=== PATIENT | female | born 1975 | race Caucasian/White ===

== ENCOUNTER 2018-04-22 19:43 | Inpatient (IN) | payer OTHER, MEDICARE ==
[2018-04-22 20:24] LABS: Hematocrit 40 % (35-47); Hemoglobin 14.2 g/dl (12.0-16.0); Mean Corpuscular HGB Conc 35 g/dl (31-36); Mean Corpuscular Hemoglobin 32 pg (27-31); Mean Corpuscular Volume 92 fL (80-97); Mean Platelet Volume 7.9 um3 (7.4-10.4); Platelet Count 214 10^3/ul (150-450); Red Blood Count 4.41 10^6/ul (4.00-5.40); Red Cell Distribution Width 12 % (10.5-15); White Blood Count 5.1 10^3/ul (3.5-10.8)
[2018-04-22 20:39] LABS: EGFR Non-African American 81.1 (>60)
[2018-04-22 20:45] LABS: Urine Appearance Clear; Urine Blood Negative (Negative); Urine Color Yellow; Urine Ketones 2+ (Negative); Urine Protein Negative (Negative); Urine Red Blood Cell Absent (Absent); Urine Specific Gravity 1.018 (1.010-1.030); Urine Urobilinogen Negative (Negative); Urine White Blood Cell Trace(0-5/hpf) (Absent)
[2018-04-22 20:48] LABS: ABS Basophils 0 10^3/ul (0-0.2); ABS Neutrophils 1.3 10^3/ul (1.5-7.7); ABS Neutrophils 2.6 10^3/ul (1.5-7.7); Monocytes % 11 % (0-7)
[2018-04-22 20:52] LABS: Lithium < 0.10 mmol/L (0.6-1.2)
[2018-04-22] MEDS ORDERED: Al Hydrox/Mg Hydrox/Simet LIQ* 30 ML UDC PO PRN (23:47)
[2018-04-22] MEDS ORDERED: Acetaminophen TAB* 325 MG PO PRN (23:47)
[2018-04-22 23:58] VITALS: BP 105/68
[2018-04-23] MEDS: Lithium Carbonate TAB* 300 MG PO SCH ×3 (09:30→21:15)
[2018-04-23] MEDS: Vitamin THERAPEUTIC TAB PO SCH (09:30)
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
--- NOTE | 2018-04-23 19:11 | ED ---
Nelli Sood Elizabeth, scribed for Irving Aguiar MD on 04/22/18 at 2002 . Psychiatric Complaint - HPI Summary HPI Summary: This patient is a 43 year old F presenting to [facility] with a chief complaint of decompensation since a few days ago. Per triage note, the patient reports life has been a harder than normal. The patient rates the pain 0/10 in severity. Symptoms aggravated by nothing. Symptoms alleviated by nothing. Patient denies SI, HI. The patient reports that she has been taking her [place] and Invega Sustenna medications. The patient has hx of depression and bipolar disorder. - History Of Current Complaint Chief Complaint: EDMentalHealth Time Seen by Provider: 04/22/18 19:55 Hx Obtained From: Patient Hx Last Menstrual Period: 08/17/17 Onset/Duration: Gradual Onset, Lasting Days, Still Present Timing: Constant Severity Initially: Mild Severity Currently: Mild Character: Depressed Aggravating Factor(s): Nothing Alleviating Factor(s): Nothing Related History: Positive For: Prior Psychiatric Issues Has Suicidal: Denies: Thoughts Has Homicidal: Denies: Thoughts - Allergies/Home Medications Allergies/Adverse Reactions: Allergies Allergy/AdvReac Type Severity Reaction Status Date / Time No Known Allergies Allergy Verified 08/22/17 09:52 PMH/Surg Hx/FS Hx/Imm Hx Respiratory History: Denies: Hx Chronic Obstructive Pulmonary Disease (COPD) Opthamlomology History: Denies: Hx Legally Blind EENT History: Denies: Hx Deafness Psychiatric History: Reports: Hx Depression, Hx Bipolar Disorder Infectious Disease History: No Infectious Disease History: Denies: Traveled Outside the [place] in Last 30 Days - Family History Known Family History: Positive: None - Social History Alcohol Use: None Substance Use Type: Reports: None Smoking Status (MU): Never Smoked Tobacco Review of Systems Negative: Fever Negative: Epistaxis Negative: Cough Negative: Vomiting Positive: Depressed, Other - negative SI, negative HI All Other Systems Reviewed And Are Negative: Yes Physical Exam - Summary Physical Exam Summary: VITAL SIGNS: Reviewed. GENERAL: Patient is a well-developed and nourished FEMALE who is lying comfortable in the stretcher. Patient is not in any acute respiratory distress. HEAD AND FACE: No signs of trauma. No ecchymosis, hematomas or skull depressions. No sinus tenderness. EYES: PERRLA, EOMI x 2, No injected conjunctiva, no nystagmus. EARS: Hearing grossly intact. Ear canals and tympanic membranes are within normal limits. MOUTH: Oropharynx within normal limits. NECK: Supple, trachea is midline, no adenopathy, no JVD, no carotid bruit, no c- spine tenderness, neck with full ROM. CHEST: Symmetric, no tenderness at palpation LUNGS: Clear to auscultation bilaterally. No wheezing or crackles. CVS: Regular rate and rhythm, S1 and S2 present, no murmurs or gallops appreciated. ABDOMEN: Soft, non-tender. No signs of distention. No rebound no guarding, and no masses palpated. Bowel sounds are normal. EXTREMITIES: FROM in all major joints, no edema, no cyanosis or clubbing. NEURO: Alert and oriented x 3. No acute neurological deficits. Speech is normal and follows commands. SKIN: Dry and warm PSYCH: depressed affect Triage Information Reviewed: Yes Vital Signs On Initial Exam: Initial Vitals Temp Pulse Resp BP Pulse Ox 99.7 F 90 16 122/87 96 04/22/18 19:46 04/22/18 19:46 04/22/18 19:46 04/22/18 19:46 04/22/18 19:46 Vital Signs Reviewed: Yes Diagnostics - Vital Signs Vital Signs Temp Pulse Resp BP Pulse Ox 04/22/18 19:46 99.7 F 90 16 122/87 96 - Laboratory Result Diagrams: 04/22/18 20:14 04/22/18 20:14 Lab Statement: Any lab studies that have been ordered have been reviewed, and results considered in the medical decision making process. Course/Dx - Course Course Of Treatment: This patient is a 43 year old F with hx of depression and bipolar disorder reporting decompensation since a few days ago. Patient denies SI, HI. The patient reports that she has been taking her medications. Test results with no significant abnormalities. After [facility], we discussed patient care with Dr. Mcbride and they recommended the patient be admitted with dx of unspecified depression. Patient will be admitted to the [facility]. The patient is agreeable with this plan. - Differential Dx/Clinical Impression Provider Diagnosis: Major depressive disorder, recurrent, unspecified - Physician Notifications Discussed Care Of Patient With: Nicho Mcbride Time Discussed With Above Provider: 22:40 Instructed by Provider To: Admit As Inpatient Discharge - Sign-Out/Discharge Documenting (check all that apply): Discharge/Admit/Transfer - Discharge Plan Condition: Stable Disposition: ADMITTED TO [facility] Discharge Disposition Comment: admit to [facility] The documentation as recorded by the Nelli dorantes Elizabeth accurately reflects the service I personally performed and the decisions made by me, Irving Aguiar MD.
[2018-04-24] MEDS ORDERED: Paliperidone SUSTENNA* 234 MG/1.5 ML IM SCH (09:00)
[2018-04-24] MEDS ORDERED: [UNRECOGNIZED DRUG - OTHER] IM ONE (12:00)
[2018-04-24] MEDS ORDERED: PALIPERIDONE IM ONE (12:00)
[2018-04-24] MEDS ORDERED: PALIPERIDONE PALMITATE 39 MG/0.25 ML IM ONE (12:00)
[2018-04-24] MEDS: Lithium Carbonate TAB* 300 MG PO SCH ×2 (12:43→21:06)
[2018-04-24] MEDS: Vitamin THERAPEUTIC TAB PO SCH (12:43)
[2018-04-24] MEDS ORDERED: Lithium Carbonate CAP 150 MG ** CAPSULE PO ONE (13:27)
--- NOTE | 2018-04-24 15:51 | PN ---
Subjective - Subjective Date of Service: 04/24/18 Service Type: 12364 Hosp care 25 min moderate complexity Subjective: Imelda is pleasant in conversation but continues with long latencies before answering some questions. She continues with some limited insight regarding her lithium dosage, wanting to lower it by 10% every week. She recalls a tiime that she tried to lower the dose at the same time as limiting her calories to <800 per day. She recognizes that the calorie reduction was severe, but does not see that the coincident lithium reduction was also problematic. Objective - Appearance Appearance: Thin Framed Dysmorphic Features: No Hygiene: Normal Grooming: Fairly Well Kept - Behavior Psychomotor Activities: Normal Exhibits Abnormal Movement: No - Attitude and Relatedness Attitude and Relatedness: Guarded Eye Contact: Good - Speech Quality: Unpressured Latencies: Long Quantity: Appropriate - Mood Patient's Decription of Mood: "Okay" - Affect Observed Affect: Unvariable Affect Consistent with: Dysphoria - Thought Process Patient's Thought Process: Coherent Thought Content: No Passive Wish, No Suicidal Planning, No Homicidal Ideation, No Paranoid Ideation - Sensorium Experiencing Hallucinations: No, Sensorium is Clear Type of Hallucinations: Visual: No, Auditory: No, Command: No - Level of Consciousness Level of Consciousness: Alert Orientation: Yes Intact, Yes Orientated to Time, Yes Orientated to Place, Yes Orientated to Person - Impulse Control Impulse Control: Intact - Insight and Judgement Insight and Judgement: Impaired - Medication Management Medication Management Adherence: Partial - Additional Observations Comments: Restarting lithium is the main goal at this time and Imelda agrees to 750 mg. She is sleeping much of the day. She sits very still. Assessment - Assessment Merits Inpatient Hospitalization: For Immediate Safety Inpatient DSM-V Dx: F31.5 Clinical Impression: Imelda is exhibiting significant depressive symptoms as well as impaired insight. Plan - Plan Treatment Plan: Name: IMELDA PICKERING Birthdate: 1975 [id number] Continued Medication Management: Continue Outpt Medication Medications: Current Medications Acetaminophen (Tylenol Tab*) 650 mg PO Q4H PRN PRN Reason: PAIN or TEMP > 101 F Al Hydrox/Mg Hydrox/Simethicone (Maalox Plus*) 30 ml PO Q4H PRN PRN Reason: INDIGESTION Cholecalciferol (Vitamin D Tab*) 1,000 units PO DAILY GLORIA [place] Carbonate ([place] Carbonate Tab*) 300 mg PO BID GLORIA Multivitamins (Theragran Tab*) 1 tab PO DAILY GLORIA Last Admin: 04/24/18 12:43 Dose: 1 tab - Discharge Plan Discharge Plan: Outpatient Follow Up Outpatient Program: [facility] Additional Comments: Imelda's lithium will be restarted to increase blood levels to those that are therapeutic. She states she has missed several doses recently. We initiate 750 mg today. 39 mg of Invega Sustenna was administered today and is considered part of the ongoing discharge plan.
[2018-04-25] MEDS: Vitamin THERAPEUTIC TAB PO SCH (08:55)
[2018-04-25] MEDS: Lithium Carbonate TAB* 300 MG PO SCH ×2 (08:55→20:37)
[2018-04-25] MEDS: Cholecalciferol TAB* 1000 UNITS PO SCH (08:55)
--- NOTE | 2018-04-25 14:06 | PN ---
Subjective - Subjective Date of Service: 04/25/18 Service Type: 30377 Hosp care 15 min low complexity Subjective: I spoke with Yemi about lithium. She is happy with the 750 mg that is prescribed and agrees to a blood draw on morning to check a level. In our initial conversation, she said that she would like to reduce from 900 mg of lithium and 750 is the compromise we came up with. She is also pacing around the unit. She is not saying that she's bored. It is good to see her out of bed. She would like to have staff pass, which we will chay. Objective - Appearance Appearance: Healthy Appearing Dysmorphic Features: No Hygiene: Normal Grooming: Fairly Well Kept - Behavior Psychomotor Activities: Normal Exhibits Abnormal Movement: No - Attitude and Relatedness Attitude and Relatedness: Psychotically Related Eye Contact: Good - Speech Quality: Unpressured Latencies: Short Quantity: Terse - Mood Patient's Decription of Mood: "Okay" - Affect Observed Affect: Constricted Affect Consistent with: Euthymia - Thought Process Patient's Thought Process: Coherent Thought Content: No Passive Wish, No Suicidal Planning, No Homicidal Ideation, No Paranoid Ideation - Sensorium Experiencing Hallucinations: No, Sensorium is Clear Type of Hallucinations: Visual: No, Auditory: No, Command: No - Level of Consciousness Level of Consciousness: Alert Orientation: Yes Intact, Yes Orientated to Time, Yes Orientated to Place, Yes Orientated to Person - Impulse Control Impulse Control: Intact - Insight and Judgement Insight and Judgement: Impaired - Group Participation Particating in Group Activities: No - Medication Management Medication Management Adherence: Yes - Additional Observations Comments: Restarting lithium is the main goal at this time and Yemi agrees to 750 mg. She is now walking around the unit wearing bare feet. Latencies are present, but she is pleasant and answers appropriately. Assessment - Assessment Merits Inpatient Hospitalization: For Immediate Safety, For Stabilization Inpatient DSM-V Dx: F31.5 Clinical Impression: Yemi is exhibiting depressive symptoms as well as impaired insight which would make it difficult for her to manage outside the hospital setting. Plan - Plan Treatment Plan: Name: YEMI PICKERING Birthdate: 1975 [id number] Continued Medication Management: Continue Outpt Medication Medications: Current Medications Acetaminophen (Tylenol Tab*) 650 mg PO Q4H PRN PRN Reason: PAIN or TEMP > 101 F Al Hydrox/Mg Hydrox/Simethicone (Maalox Plus*) 30 ml PO Q4H PRN PRN Reason: INDIGESTION Cholecalciferol (Vitamin D Tab*) 1,000 units PO DAILY [facility] Last Admin: 04/25/18 08:55 Dose: 1,000 units [place] Carbonate ([place] Carbonate Tab*) 300 mg PO BID GLORIA Last Admin: 04/25/18 08:55 Dose: 300 mg [place] Carbonate ([place] Carbonate Cap) 150 mg PO BEDTIME GL[facility]IA Multivitamins (Theragran Tab*) 1 tab PO DAILY GLORIA Last Admin: 04/25/18 08:55 Dose: 1 tab - Discharge Plan Discharge Plan: Outpatient Follow Up Outpatient Program[facility] Additional Comments: Yemi's lithium will be restarted to increase blood levels to those that are therapeutic. She states she has missed several doses recently. We initiate 750 mg today. 39 mg of Invega Sustenna was administered today and is considered part of the ongoing discharge plan. She had privileges increased today and a nutrition consult entered. We are looking toward Tuesday for discharge.
[2018-04-25] MEDS: Lithium Carbonate CAP 150 MG ** CAPSULE PO SCH (20:38)
[2018-04-26] MEDS: Lithium Carbonate TAB* 300 MG PO SCH ×2 (09:51→20:39)
[2018-04-26] MEDS: Cholecalciferol TAB* 1000 UNITS PO SCH (09:51)
[2018-04-26] MEDS: Vitamin THERAPEUTIC TAB PO SCH (09:51)
[2018-04-26] MEDS: Lithium Carbonate CAP 150 MG ** CAPSULE PO SCH (20:38)
[2018-04-27] MEDS: Cholecalciferol TAB* 1000 UNITS PO SCH (08:36)
[2018-04-27] MEDS: Vitamin THERAPEUTIC TAB PO SCH (08:37)
--- NOTE | 2018-04-27 08:38 | PN ---
Subjective - Subjective Date of Service: 04/26/18 Service Type: [id number] Hosp care 15 min low complexity Subjective: Imelda's speech latencies have nearly resolved. She is bright and reports feeling well, if a little bored. She would like to be discharged Tuesday before her son's recital. She has not yet stated when the recital is. Objective - Appearance Appearance: Healthy Appearing Dysmorphic Features: No Hygiene: Normal Grooming: Well Kept - Behavior Psychomotor Activities: Normal Exhibits Abnormal Movement: No - Attitude and Relatedness Attitude and Relatedness: Well Related Eye Contact: Good - Speech Quality: Unpressured Latencies: Short Quantity: Terse - Mood Patient's Decription of Mood: "Good" - Affect Observed Affect: Good Affect Consistent with: Euthymia - Thought Process Patient's Thought Process: Coherent, Goal Directed Thought Content: No Passive Wish, No Suicidal Planning, No Homicidal Ideation - Sensorium Experiencing Hallucinations: No, Sensorium is Clear Type of Hallucinations: Visual: No, Auditory: No, Command: No - Level of Consciousness Level of Consciousness: Alert Orientation: Yes Intact, Yes Orientated to Time, Yes Orientated to Place, Yes Orientated to Person - Impulse Control Impulse Control: Intact - Insight and Judgement Insight and Judgement: Impaired - Group Participation Particating in Group Activities: Yes - Medication Management Medication Management Adherence: Yes - Additional Observations Comments: Restarting lithium is the main goal at this time and Imelda agrees to 750 mg. She is now walking around the unit wearing bare feet. Latencies are much reduced and she is pleasant and answers appropriately. She is well groomed and is walking frequently around the unit. Assessment - Assessment Merits Inpatient Hospitalization: For Immediate Safety, For Stabilization, For Discharge Planning Inpatient DSM-V Dx: F31.5 Clinical Impression: Imelda has improved significantly with time and appropriate medications. She is reasonably happy on the unit, but requests to go home soon. She may have some psychotic thought processes remaining, but she is not sharing these with me. Her depression, which brought her here, seems to have resolved. Plan - Plan Treatment Plan: Name: IMELDA PICKERING Birthdate: 1975 [id number] Medications: Current Medications Acetaminophen (Tylenol Tab*) 650 mg PO Q4H PRN PRN Reason: PAIN or TEMP > 101 F Al Hydrox/Mg Hydrox/Simethicone (Maalox Plus*) 30 ml PO Q4H PRN PRN Reason: INDIGESTION Cholecalciferol (Vitamin D Tab*) 1,000 units PO DAILY [facility] Last Admin: 04/26/18 09:51 Dose: 1,000 units [place] Carbonate ([place] Carbonate Tab*) 300 mg PO BID [facility] Last Admin: 04/26/18 20:39 Dose: 300 mg [place] Carbonate ([place] Carbonate Cap) 150 mg PO BEDTIME [facility] Last Admin: 04/26/18 20:38 Dose: 150 mg Multivitamins (Theragran Tab*) 1 tab PO DAILY [facility] Last Admin: 04/26/18 09:51 Dose: 1 tab - Discharge Plan Additional Comments: Imelda's lithium will be restarted to increase blood levels to those that are therapeutic. She stated she had missed several doses recently. We initiated 750 mg of lithium. 39 mg of Invega Sustenna was administered this week and is considered part of the ongoing discharge plan. She had privileges increased and a nutrition consult entered. She will have a lithium draw on morning and dose will be titrated.
[2018-04-27] MEDS: Lithium Carbonate TAB* 300 MG PO SCH (08:42)
--- NOTE | 2018-04-28 14:55 | DS ---
DISCHARGE SUMMARY: DATE OF ADMISSION: 04/22/18 DATE OF DISCHARGE: 04/27/18 PROVIDER: Eugenia Parker NP in Psychiatry. SUPERVISING PHYSICIAN: Dr. Nicho Mcbride.* (DICTATED BY EUGENIA PARKER NP ) DIAGNOSIS: AXIS I: Bipolar disorder, depressed episode with psychotic features. CONDITION AT THE TIME OF DISCHARGE: Improved. Psychiatrically cleared, stable. She did not participate in groups, she was not social with peers. She is agreeable to discharge and is eager to leave so she can see a recital done by her son on Tuesday. She has done well psychiatrically, improving significantly. She tolerated the adjustment of dosing on her [place] and she will attend [facility]. MENTAL STATUS EXAM: At the time of discharge, Imelda is calm, cooperative, and makes good eye contact. She is alert and oriented x3. Her grooming is good. Her speech pace is normal. Her thought processes are logical. She is not psychotic anymore. She is not delusional. She denies AH, VH, SI, and HI. Her insight and judgments are fair to good. Her impulse control is good. She is willing to follow up. DISCHARGE INSTRUCTIONS: Medications: Relevant medications for Psychiatry are: 1. [place] carbonate 300 mg b.i.d. 2. Invega Sustenna 39 mg every 28 days. B. Her diet is regular. C. Activities: As tolerated. She is a nonsmoker. There are no studies pending at the time of discharge. D. Followup care: She has appointments at [facility]. E. Substance abuse followup is not indicated. HOSPITAL COURSE: A. Chief Complaint: "I just thought I needed a break." The patient is a 43-year-old , white female with a history of bipolar disorder and multiple historical acute psychiatric hospitalizations, who arrives on an voluntary basis seeking admission due to significant depressive symptoms and inability to meet her own needs in the community. The patient presented with limited motor movement, depressed thoughts, thought blocking, inconsistency in sleep, and very little energy. She reports that she has been "feeling low" and she states that normally she does not get this low unless she is going to commit suicide. 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 When I met with her, she is difficult to interview because she has extreme speech latency. She claims that she has been feeling lonely. I note that her lithium level was extremely low at 0.1, which she responds, "I might have missed a couple of days." I I also note that she is on an extremely low dose of monthly Invega/ Sustenna only 39 mg monthly, which is due on 04/24/18. When I asked about this, she states that she has side effects on all the higher doses including 234 and 156. She notes going down to her current 39 mg dose approximately 8 months ago under the care of Dr. Mireille Silver at [facility]. Symptomatically, she is endorsing amotivation, anxiety, anhedonia, appetite disturbance, and inconsistent sleep. She denies guilt, energy problems, concentration problems, psychomotor retardation, or suicidal or homicidal thinking. B. Psychiatric treatment was rendered. The patient was admitted to the adult behavioral unit and placed on 15-minute checks. She spent much of her time for the first 2 days in bed sleeping and then was seen up and around, sometimes pacing, sometimes back in bed for a few days until finally her last 2 days, she is pacing around the unit. The speech latency that was observed at the beginning of her stay reduced, but still existed. Latencies are very mild and were not out of the realm of typical speech latency. She had her [place] dose increased to 750 mg per day. Her blood levels came back at 1.22, which is too high and then we reduced it to 600 mg total. Her blood draw is scheduled when she is in outpatient treatment. She did tolerate the med change, but we reduced it to 600. That med was restarted as she has stopped taking [place] according to her for a few days. Her hemoglobin A1c was 4.9. Her lipids were as follows: Triglycerides 140, cholesterol 193, LDL cholesterol 131, HDL cholesterol 34.0. Her vitamin D total was low at 17.4 and her TSH is normal at 2.08. As stated before, she is eager to see her son perform in a recital on Tuesday. Nutrition consult was entered as she likes certain specific foods and tends to restrict her diet at times. She is significantly improved however and we will be discharging her on 04/27/18. EUGENIA PARKER, SOCIAL WORKER AIDE [id number]/[facility] #: [id number] MTDMichelle
== END 2018-04-27 14:08 | disposition home or self-care (01) | DRG 885 ==
LOC: ED 19:43 → BSU 22:40
PROVIDERS: ADMIT Psychiatry & Neurology Psychiatry; ATTEND Psychiatry & Neurology Psychiatry
DX: F31.5 Bipolar disorder, current episode depressed, severe, with psychotic features (principal); G47.8 Other sleep disorders; Z91.5 Personal history of self-harm; Z85.41 Personal history of malignant neoplasm of cervix uteri; Z81.8 Family history of other mental and behavioral disorders
CPT/HCPCS: 36415; 80053; 80061; 80178; 80307; 80320; 80329; 81003; 81015; 82306; 83036; 84443; 84702; 85025; 87086; 99222; 99231; 99232; 99238; 99283; A9270-GY; G0480; J2426

== ENCOUNTER 2018-07-09 22:20 | Inpatient (IN) | payer OTHER, MEDICARE ==
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
[2018-07-09 22:45] LABS: ABS Basophils 0 10^3/ul (0-0.2); ABS Eosinophils 0 10^3/ul (0-0.6); ABS Lymphocytes 1.3 10^3/ul (1.0-4.8); ABS Monocytes 0.6 10^3/ul (0-0.8); ABS Neutrophils 4.3 10^3/ul (1.5-7.7); ABS Nucleated RBC 0 10^3/ul; Eosinophil % 0.1 % (0-6); Hematocrit 42 % (35-47); Hemoglobin 14.1 g/dl (12.0-16.0); Lymphocyte % 20.5 % (25-47); Mean Corpuscular HGB Conc 34 g/dl (31-36); Mean Corpuscular Hemoglobin 32 pg (27-31); Mean Corpuscular Volume 94 fL (80-97); Mean Platelet Volume 7.5 um3 (7.4-10.4); Nucleated Red Blood Cells % 0; Platelet Count 248 10^3/ul (150-450); Red Blood Count 4.43 10^6/ul (4.00-5.40); Red Cell Distribution Width 14 % (10.5-15); White Blood Count 6.2 10^3/ul (3.5-10.8)
[2018-07-09 23:02] LABS: EGFR Non-African American 79.9 (>60)
[2018-07-09 23:13] LABS: Lithium 0.12 mmol/L (0.6-1.2)
[2018-07-10] MEDS ORDERED: Haloperidol INJ IV/IM* 5 MG/ML AMP IM ONE (04:23)
[2018-07-10] MEDS ORDERED: LORazepam INJ* 2 MG/ML 1 ML VIAL IM ONE (05:19)
[2018-07-10] MEDS ORDERED: LORazepam INJ* 2 MG/ML 1 ML VIAL ONE (05:21)
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
[2018-07-11] MEDS ORDERED: LORazepam TAB(*) 1 MG ONE (04:22)
[2018-07-11] MEDS ORDERED: Haloperidol TAB* 5 MG ONE (04:23)
[2018-07-11] MEDS ORDERED: LORazepam TAB(*) 1 MG PO ONE (04:30)
[2018-07-11] MEDS ORDERED: LORazepam INJ* 2 MG/ML 1 ML VIAL IM ONE (04:30)
[2018-07-11] MEDS ORDERED: Haloperidol INJ IV/IM* 5 MG/ML AMP IM ONE (04:30)
[2018-07-11] MEDS ORDERED: Haloperidol TAB* 5 MG PO ONE (04:30)
[2018-07-11] MEDS ORDERED: Lithium Carbonate TAB* 300 MG PO ONE (10:17)
[2018-07-11] MEDS ORDERED: LORazepam TAB(*) 1 MG PO PRN (10:20)
--- NOTE | 2018-07-11 13:32 | PN ---
Subjective - Subjective Date of Service: 07/11/18 Service Type: 56833 Hosp care 15 min low complexity Subjective: Imelda is found in bed moving slowly but sitting up and alert. She is pleasant to talk to and has little to say, but is willing to talk about medications. She is willing to take a "small dose" of Abilify and 900 mg of lithium. 900 mg has historically been a therapeutic dose. At her last hospital stay, 1200 yielded a level of 1.2, too high. Objective - Appearance Appearance: Healthy Appearing Dysmorphic Features: No Hygiene: Normal Grooming: Disheveled - Behavior Psychomotor Activities: Abnormal-Decreased Exhibits Abnormal Movement: No - Attitude and Relatedness Attitude and Relatedness: Superficially Cooperative Eye Contact: Fair - Speech Quality: Unpressured Latencies: Short Quantity: Terse - Mood Patient's Decription of Mood: "Fine" - Affect Observed Affect: Constricted Affect Consistent with: Dysphoria - Thought Process Patient's Thought Process: Coherent Thought Content: No Passive Wish, No Suicidal Planning, No Homicidal Ideation, No Paranoid Ideation - Sensorium Experiencing Hallucinations: No, Sensorium is Clear Type of Hallucinations: Visual: No, Auditory: No, Command: No - Level of Consciousness Level of Consciousness: Lethargic Orientation: Yes Intact, Yes Orientated to Time, Yes Orientated to Place, Yes Orientated to Person - Impulse Control Impulse Control: Impaired - Insight and Judgement Insight and Judgement: Impaired - Group Participation Particating in Group Activities: No - Medication Management Medication Management Adherence: Yes - Additional Observations Comments: Imelda is doing as well as possible for right now. She is moving slowly and talking little, but is pleasant and largely agreeable. She is agreeable to taking lithium and was happy with 5 mg of Abilify for now. Assessment - Assessment Merits Inpatient Hospitalization: For Immediate Safety Clinical Impression: Imelda needs time to rest and recover. Her prior recovery was more rapid than we thought possible, and indeed it was not. Thus, this stay will be longer with a more aggressive application of antipsychotics as well as a longer stay to establish more stability. We will be using Abilify 400 mg as data from her stay in [place] indicates that 15 mg per day is an ideal dose of Imelda. It may be that in the future, she can use a lower dose; still, the 400 mg dose is the closest equivalent to 15 mg a day that we have. Plan - Plan Treatment Plan: Name: IMELDA PICKERING Birthdate: 1975 [id number] Medications: Current Medications Aripiprazole (Abilify Tab*) 5 mg PO BEDTIME GLORIA [place] Carbonate ([place] Carbonate Tab*) 600 mg PO BEDTIME GLORIA [place] Carbonate ([place] Carbonate Tab*) 300 mg PO DAILY GLORIA Lorazepam (Ativan Tab(*)) 2 mg PO Q4H PRN PRN Reason: Anxiety/agitation Risperidone (Risperdal-M Tab *) 1 mg PO Q6H PRN; Protocol PRN Reason: AGITATION
[2018-07-11] MEDS: Lithium Carbonate TAB* 300 MG PO SCH (21:57)
[2018-07-11] MEDS: ARIPiprazole TAB* 5 MG PO SCH (21:57)
[2018-07-12] MEDS: LORazepam TAB(*) 1 MG PO PRN (01:05)
[2018-07-12] MEDS: risperiDONE-M * 1 MG TAB.ORADIS PO PRN (01:05)
[2018-07-12] MEDS: Lithium Carbonate TAB* 300 MG PO SCH ×3 (10:34→20:59)
--- NOTE | 2018-07-12 14:44 | PN ---
Subjective - Subjective Date of Service: 07/12/18 Service Type: 71098 Hosp care 15 min low complexity Subjective: Imelda has agreed to take 300 mg of Abilify Maintena. She was quite delighted, in fact. She was not agreeable to taking more than 5 mg of Abilify oral tablet, however. Nevertheless, with the Abilify concentration increasing, she will be more likely to be less psychotic. She is currently pacing through the hallways and trying to understand why the unit looks different than the last time she was here. I did find her on one knee in the hallway; she said she tried to do a cartwheel and it "wasn't my finest moment." She was strongly encouraged not to do that again. Objective - Appearance Appearance: Healthy Appearing, Thin Framed Dysmorphic Features: No Hygiene: Normal Grooming: Disheveled - Behavior Psychomotor Activities: Normal Exhibits Abnormal Movement: No - Attitude and Relatedness Attitude and Relatedness: Cooperative Eye Contact: Good - Speech Quality: Unpressured Latencies: Short Quantity: Appropriate - Mood Patient's Decription of Mood: "Good" - Affect Observed Affect: Fair Affect Consistent with: Euthymia - Thought Process Patient's Thought Process: Disorganized Thought Content: No Passive Wish, No Suicidal Planning, No Homicidal Ideation, No Paranoid Ideation - Sensorium Experiencing Hallucinations: No, Sensorium is Clear Type of Hallucinations: Visual: No, Auditory: No, Command: No - Level of Consciousness Level of Consciousness: Alert Orientation: Yes Intact, Yes Orientated to Time, Yes Orientated to Person, No Orientated to Place - Impulse Control Impulse Control: Impaired - Insight and Judgement Insight and Judgement: Impaired - Group Participation Particating in Group Activities: No - Medication Management Medication Management Adherence: Yes - Additional Observations Comments: Imelda is doing as well as possible for right now. She is moving slowly and talking little, but is pleasant and largely agreeable. She is medication compliant at this time and is scheduled to get a dose of Abilify Maintena tonight. Assessment - Assessment Merits Inpatient Hospitalization: For Immediate Safety Clinical Impression: Imelda needs time to rest and recover. Her prior recovery was more rapid than we thought possible, and indeed it was not. Thus, this stay will be longer with a more aggressive application of antipsychotics as well as a longer stay to establish more stability. We will be using Abilify 300 mg, although data from her stay in [place] indicates that 15 mg per day is an ideal dose of Iemlda. Imelda was not agreeable to 400 mg, but was somewhat willing to take 300 mg. Plan - Plan Treatment Plan: Name: IMELDA PICKERING Birthdate: 1975 [id number] Continued Medication Management: Start Medication Medications: Current Medications Aripiprazole (Abilify Tab*) 5 mg PO BEDTIME [facility] Last Admin: 07/11/18 21:57 Dose: Not Given Aripiprazole (Abilify Maintena (Nf)) 300 mg IM Q28D [facility] [place] Carbonate ([place] Carbonate Tab*) 600 mg PO BEDTIME [facility] Last Admin: 07/11/18 21:57 Dose: Not Given [place] Carbonate ([place] Carbonate Tab*) 300 mg PO DAILY [facility] Last Admin: 07/12/18 10:34 Dose: 300 mg Lorazepam (Ativan Tab(*)) 2 mg PO Q4H PRN PRN Reason: Anxiety/agitation Last Admin: 07/12/18 01:05 Dose: 2 mg Risperidone (Risperdal-M Tab *) 1 mg PO Q6H PRN; Protocol PRN Reason: AGITATION Last Admin: 07/12/18 01:05 Dose: 1 mg - Discharge Plan Discharge Plan: Outpatient Follow Up [facility] Additional Comments: We are starting Maintena 300 mg tonight. Imelda will continue to be watched carefully as she is pacing and did attempt a cartwheel in the hallway. She is eating only a vegan raw diet. I will enter a nutrition consult as I am uncertain exactly what kind of diet she will be able to create from the choices here. Main concerns going forward at this time are tolerability of Abilify Maintena, sleep, and nutrition.
[2018-07-12] MEDS ORDERED: Aripiprazole Maintena (NF) 300 MG SYRINGE IM SCH (15:00)
[2018-07-12] MEDS: ARIPiprazole TAB* 5 MG PO SCH ×2 (20:46→20:59)
[2018-07-13] MEDS: Lithium Carbonate TAB* 300 MG PO SCH ×2 (09:54→22:02)
--- NOTE | 2018-07-13 14:47 | PN ---
Subjective - Subjective Date of Service: 07/13/18 Service Type: 57105 Hosp care 15 min low complexity Subjective: Imelda is pacing the unit. When I tried to engage her in conversation, she wanted to continue walking rather than talk. She discussed her diet, which is a vegan, raw food diet. The muck farmer has seen her and, although she is not interested in eating nuts or tofu, she has made choices such as having a bowl of soup, which is not on the diet she has prescribed her self, but may provide a more complete array of nutrients and calories. Objective - Appearance Appearance: Thin Framed Dysmorphic Features: No Hygiene: Normal Grooming: Disheveled - Behavior Psychomotor Activities: Normal Exhibits Abnormal Movement: No - Attitude and Relatedness Attitude and Relatedness: Psychotically Related Eye Contact: Good - Speech Quality: Unpressured Latencies: Normal Quantity: Appropriate - Mood Patient's Decription of Mood: "Good" - Affect Observed Affect: Euphoric Affect Consistent with: Euphoria - Thought Process Patient's Thought Process: Disorganized Thought Content: No Passive Wish, No Suicidal Planning, No Homicidal Ideation, No Paranoid Ideation - Sensorium Experiencing Hallucinations: No, Sensorium is Clear Type of Hallucinations: Visual: No, Auditory: No, Command: No - Level of Consciousness Level of Consciousness: Alert Orientation: Yes Intact, Yes Orientated to Time, Yes Orientated to Place, Yes Orientated to Person - Impulse Control Impulse Control: Tenuous - Insight and Judgement Insight and Judgement: Poor - Group Participation Particating in Group Activities: No - Medication Management Medication Management Adherence: Yes - Additional Observations Comments: Imelda is doing as well as possible for right now. She is moving well and is pacing the unit, but she is pleasant and largely agreeable. She is medication compliant at this time and received an initial dose of Abilify Maintena 300 mg last night. Assessment - Assessment Inpatient DSM-V Dx: F31.13 Clinical Impression: Imelda needs time to rest and recover. This stay will be longer than her previous stay with a more aggressive application of antipsychotics to establish more stability. We will be using Abilify 300 mg, although data from her stay in [place] indicates that 15 mg per day is an ideal dose of Imelda. Imelda was not agreeable to 400 mg, but was somewhat willing to take 300 mg. She is pleasant and not saying psychotic things. However, when she believes she is not observed , she engages in some odd behaviors such as trying to turn a cartwheel in the gill[place] and moving her feet in some kind of pattern. Plan - Plan Treatment Plan: Name: IMELDA PICKERING Birthdate: 1975 [id number] Continued Medication Management: Start Medication Medications: Current Medications Aripiprazole (Abilify Tab*) 5 mg PO BEDTIME [facility] Last Admin: 07/12/18 20:59 Dose: 5 mg Aripiprazole (Abilify Maintena (Nf)) 300 mg IM Q28D [facility] Last Admin: 07/12/18 16:40 Dose: 300 mg [place] Carbonate ([place] Carbonate Tab*) 600 mg PO BEDTIME [facility] Last Admin: 07/12/18 20:59 Dose: 600 mg [place] Carbonate ([place] Carbonate Tab*) 300 mg PO DAILY [facility] Last Admin: 07/13/18 09:54 Dose: Not Given Lorazepam (Ativan Tab(*)) 2 mg PO Q4H PRN PRN Reason: Anxiety/agitation Last Admin: 07/12/18 01:05 Dose: 2 mg Risperidone (Risperdal-M Tab *) 1 mg PO Q6H PRN; Protocol PRN Reason: AGITATION Last Admin: 07/12/18 01:05 Dose: 1 mg - Discharge Plan Discharge Plan: Outpatient Follow Up Additional Comments: We started Maintena 300 mg. Imelda will continue to be watched carefully as she is pacing and does not always look where she is going. She is eating only a vegan raw diet. Main concerns going forward at this time are tolerability of Abilify Maintena, sleep, and nutrition. Her medications will be reviewed and she will be given time and opportunity to improve before discharge is considered.
[2018-07-13] MEDS: ARIPiprazole TAB* 5 MG PO SCH (22:02)
[2018-07-14] MEDS: Lithium Carbonate TAB* 300 MG PO SCH ×2 (10:33→22:02)
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
[2018-07-14] MEDS: ARIPiprazole TAB* 5 MG PO SCH (22:02)
[2018-07-15] MEDS: Lithium Carbonate TAB* 300 MG PO SCH ×2 (09:29→20:25)
[2018-07-15] MEDS: ARIPiprazole TAB* 5 MG PO SCH (20:25)
[2018-07-16] MEDS: Lithium Carbonate TAB* 300 MG PO SCH ×2 (09:05→20:55)
[2018-07-16] MEDS: ARIPiprazole TAB* 5 MG PO SCH (20:55)
[2018-07-17] MEDS: Lithium Carbonate TAB* 300 MG PO SCH ×2 (09:40→22:25)
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
[2018-07-17] MEDS: ARIPiprazole TAB* 5 MG PO SCH (22:24)
[2018-07-18] MEDS: Lithium Carbonate TAB* 300 MG PO SCH ×2 (09:33→21:02)
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
[2018-07-18] MEDS: ARIPiprazole TAB* 5 MG PO SCH (21:02)
[2018-07-19] MEDS: Lithium Carbonate TAB* 300 MG PO SCH ×2 (10:19→21:03)
--- NOTE | 2018-07-19 14:00 | PN ---
Subjective - Subjective Date of Service: 07/19/18 Service Type: [id number] Hosp care 15 min low complexity Subjective: Imelda is pacing the halls today. She was lying on the floor face down earlier this morning and was running up and down the halls. She also poured a cup of water over her head in the middle of the hallway. She is, at the time I speak with her, bright and cheery. She remarks that she is feeling "great!" Still, she has limited insight into how her behavior might affect others or how their behavior might affect her. For example, she was lying naked on her bed in her room with no covers and the door open. Objective - Appearance Appearance: Thin Framed Dysmorphic Features: No Hygiene: Normal Grooming: Disheveled - Behavior Psychomotor Activities: Abnormal-Increased Exhibits Abnormal Movement: No - Attitude and Relatedness Attitude and Relatedness: Psychotically Related Eye Contact: Fair - Speech Quality: Unpressured Latencies: Short Quantity: Terse - Mood Patient's Decription of Mood: "Great" - Affect Observed Affect: Euphoric Affect Consistent with: Euphoria - Thought Process Patient's Thought Process: Disorganized Thought Content: No Passive Wish, No Suicidal Planning, No Homicidal Ideation, No Paranoid Ideation - Sensorium Experiencing Hallucinations: No, Sensorium is Clear Type of Hallucinations: Visual: No, Auditory: No, Command: No - Level of Consciousness Level of Consciousness: Alert Orientation: Yes Intact, Yes Orientated to Time, Yes Orientated to Place, Yes Orientated to Person - Impulse Control Impulse Control: Impaired - Insight and Judgement Insight and Judgement: Poor - Group Participation Particating in Group Activities: No - Medication Management Medication Management Adherence: No - Additional Observations Comments: Imelda is doing as well as possible for right now. She is refusing medication. The Abilify Maintena has not had a chance to take effect yet. She is also refusing lithium, which in the past has been extremely helpful. Her behavior would not be safe in the community. She lacks insight into what would cause her to be vulnerable (her visible nakedness, for example, or her bizarre behavior) and into what behavior is perceived as typical for a person. Assessment - Assessment Merits Inpatient Hospitalization: For Immediate Safety, For Stabilization Inpatient DSM-V Dx: F31.13 Clinical Impression: Imelda needs time to rest and recover. This stay will be longer than her previous stay with a more aggressive application of antipsychotics to establish more stability. We will be using Abilify 300 mg, although data from her stay in [place] indicates that 15 mg per day is an ideal dose of Imelda. Imelda was not agreeable to 400 mg, but was somewhat willing to take 300 mg. When she believes she is not observed, she engages in some odd behaviors such as trying to turn a cartwheel in the [place]ill[place] (this has been a repeated behavior). She does not have insight into her illness or its effect on others, such as her son or her ex- . She has been aggressive and bizarre recently and although not today, is often angry and frustrated. She is also more clearly delusional than she has been in the past. She has in the past been clearer and able to cover for her delusions, but at this time, she is no longer able to do that. Her mood shifts and today she is euphoric, stating she is "great!" and making intense eye contact at times while at other times avoiding eye contact completely. Her inexplicable running today was worrisome in terms of safety as well as appropriateness for the environment. Plan - Plan Treatment Plan: Name: IMELDA PICKERING Birthdate: 1975 [id number] Medications: Current Medications Aripiprazole (Abilify Tab*) 5 mg PO BEDTIME [facility] Last Admin: 07/18/18 21:02 Dose: Not Given Aripiprazole (Abilify Maintena (Nf)) 300 mg IM Q28D [facility] Last Admin: 07/12/18 16:40 Dose: 300 mg [place] Carbonate ([place] Carbonate Tab*) 600 mg PO BEDTIME [facility] Last Admin: 07/18/18 21:02 Dose: Not Given [place] Carbonate ([place] Carbonate Tab*) 300 mg PO DAILY [facility] Last Admin: 07/19/18 10:19 Dose: Not Given Lorazepam (Ativan Tab(*)) 2 mg PO Q4H PRN PRN Reason: Anxiety/agitation Last Admin: 07/12/18 01:05 Dose: 2 mg Risperidone (Risperdal-M Tab *) 1 mg PO Q6H PRN; Protocol PRN Reason: AGITATION Last Admin: 07/12/18 01:05 Dose: 1 mg - Discharge Plan Discharge Plan: Consider Longer Term Tx Additional Comments: We started Maintena 300 mg. Imelda will continue to be watched carefully as she is pacing and does not always look where she is going. She is eating better. Main concerns going forward at this time are tolerability of Abilify Maintena, sleep, and nutrition. As she is declining oral medications, a longer stay may be required. Further, the extraordinary situation she got into after her last discharge (jailed and hospitalized in [place]) indicate a trajectory toward state hospitalization. She has requested a court hearing for retention and at the same time we will be requesting that she be considered for state hospitalization against her objection. Her paperwork has been submitted and we will be attending court on Tuesday morning.
[2018-07-19] MEDS: ARIPiprazole TAB* 5 MG PO SCH (21:03)
[2018-07-20] MEDS: Lithium Carbonate TAB* 300 MG PO SCH ×2 (10:07→21:49)
[2018-07-20] MEDS: ARIPiprazole TAB* 5 MG PO SCH (21:49)
[2018-07-21] MEDS: Lithium Carbonate TAB* 300 MG PO SCH ×2 (12:08→21:54)
--- NOTE | 2018-07-21 13:20 | PN ---
Subjective - Subjective Date of Service: 07/21/18 Service Type: [id number] Hosp care 35 min high complexity Subjective: Imelda went to court today to establish whether she should be retained in the hospital and if she is recommended to go to [facility]. In the end, the recommendation for Imelda is to stay in the hospital and to go to the [facility]. Imelda is not satisfied with this outcome, but remains pleasant and shows a smile quickly when she is interrupted from pacing. Objective - Appearance Appearance: Thin Framed Dysmorphic Features: No Hygiene: Normal Grooming: Disheveled - Behavior Psychomotor Activities: Abnormal-Increased Exhibits Abnormal Movement: No - Attitude and Relatedness Attitude and Relatedness: Psychotically Related Eye Contact: Good - Speech Quality: Unpressured Latencies: Short Quantity: Appropriate - Mood Patient's Decription of Mood: "Fine" - Affect Observed Affect: Depressed Affect Consistent with: Dysphoria - Thought Process Patient's Thought Process: Coherent, Goal Directed, Circumstantial Thought Content: No Passive Wish, No Suicidal Planning, No Homicidal Ideation, No Paranoid Ideation - Sensorium Experiencing Hallucinations: No, Sensorium is Clear Type of Hallucinations: Visual: No, Auditory: No, Command: No - Level of Consciousness Level of Consciousness: Alert Orientation: Yes Intact, Yes Orientated to Time, Yes Orientated to Place, Yes Orientated to Person - Impulse Control Impulse Control: Tenuous - Insight and Judgement Insight and Judgement: Poor - Group Participation Particating in Group Activities: No - Medication Management Medication Management Adherence: No - Additional Observations Comments: Imelda is doing as well as possible for right now. She is refusing to take oral medication. The Abilify Maintena has not had a chance to take effect yet. She is also refusing lithium, which in the past has been extremely helpful. Her behavior would not be safe in the community. She lacks insight into what would cause her to be vulnerable (her visible nakedness, for example, or her bizarre behavior). Her testimony also indicated a lack of insight. She continues to pace the halls, now with her head bent lower. Assessment - Assessment Merits Inpatient Hospitalization: For Immediate Safety, For Discharge Planning Inpatient DSM-V Dx: F31.13 Clinical Impression: Imelda needs time to rest and recover. This stay will be longer than her previous stay with a more aggressive application of antipsychotics to establish more stability. We will be using Abilify 300 mg, although data from her stay in [place] indicates that 15 mg per day is an ideal dose of Imelda. Imelda was not agreeable to 400 mg, but was somewhat willing to take 300 mg. When she believes she is not observed, she engages in some odd behaviors such as trying to turn a cartwheel in the [place] (this has been a repeated behavior). She does not have insight into her illness or its effect on others, such as her son or her ex- . She has in the past been clearer. Today she is making intense eye contact sometimes while at other times avoiding eye contact completely. She remains unsafe in the community and is quite symptomatic. Plan - Plan Treatment Plan: Name: IMELDA PICKERING Birthdate: 1975 [id number] Medications: Current Medications Aripiprazole (Abilify Tab*) 5 mg PO BEDTIME [facility] Last Admin: 07/20/18 21:49 Dose: Not Given Aripiprazole (Abilify Maintena (Nf)) 300 mg IM Q28D [facility] Last Admin: 07/12/18 16:40 Dose: 300 mg [place] Carbonate ([place] Carbonate Tab*) 600 mg PO BEDTIME [facility] Last Admin: 07/20/18 21:49 Dose: Not Given [place] Carbonate ([place] Carbonate Tab*) 300 mg PO DAILY [facility] Last Admin: 07/21/18 12:08 Dose: Not Given Lorazepam (Ativan Tab(*)) 2 mg PO Q4H PRN PRN Reason: Anxiety/agitation Last Admin: 07/12/18 01:05 Dose: 2 mg Risperidone (Risperdal-M Tab *) 1 mg PO Q6H PRN; Protocol PRN Reason: AGITATION Last Admin: 07/12/18 01:05 Dose: 1 mg - Discharge Plan Discharge Plan: Consider Longer Term Tx Additional Comments: We started Maintena 300 mg. Imelda will continue to be watched carefully as she is pacing and does not always look where she is going. She is eating better. Main concerns going forward at this time are tolerability of Abilify Maintena, sleep, and nutrition. As she is declining oral medications, a longer stay has been required. Further, the extraordinary situation she got into after her last discharge (jailed and hospitalized in [place]) indicate a trajectory toward state hospitalization. She attended court this morning and she is now on track to be referred to the state hospital.
[2018-07-21] MEDS: ARIPiprazole TAB* 5 MG PO SCH (21:53)
[2018-07-22] MEDS: Lithium Carbonate TAB* 300 MG PO SCH ×2 (11:47→21:36)
[2018-07-22] MEDS: ARIPiprazole TAB* 5 MG PO SCH (21:36)
[2018-07-23] MEDS: Lithium Carbonate TAB* 300 MG PO SCH ×2 (09:21→20:59)
[2018-07-23] MEDS: ARIPiprazole TAB* 5 MG PO SCH (20:59)
[2018-07-24] MEDS: Lithium Carbonate TAB* 300 MG PO SCH ×2 (09:27→20:56)
--- NOTE | 2018-07-24 14:09 | PN ---
Subjective - Subjective Date of Service: 07/24/18 Service Type: [id number] Hosp care 15 min low complexity Subjective: Imelda is more disheveled that she has been. She is walking around with her arms in a curve and her hands in a claw shape. She is cheerful when greeted. When asked how she is, she brightly says, "I'm dying! I'm dying of brain !" She continues pacing. Objective - Appearance Appearance: Thin Framed Dysmorphic Features: No Hygiene: Normal Grooming: Disheveled - Behavior Psychomotor Activities: Abnormal-Increased Exhibits Abnormal Movement: Yes - Attitude and Relatedness Attitude and Relatedness: Psychotically Related Eye Contact: Poor - Speech Quality: Unpressured Latencies: Short Quantity: Terse - Mood Patient's Decription of Mood: "Good" - Affect Observed Affect: Unvariable Affect Consistent with: Dysphoria - Thought Process Patient's Thought Process: Disorganized Thought Content: Yes Paranoid Ideation - Sensorium Experiencing Hallucinations: Yes Type of Hallucinations: Visual: No, Auditory: Yes, Command: No - Level of Consciousness Level of Consciousness: Alert - Impulse Control Impulse Control: Poor - Insight and Judgement Insight and Judgement: Poor - Group Participation Particating in Group Activities: No - Medication Management Medication Management Adherence: No - Additional Observations Comments: Imelda is doing as well as possible for right now. She is refusing to take oral medication. The Abilify Maintena has not had a chance to take effect yet. She is also refusing lithium, which in the past has been extremely helpful. Her behavior would not be safe in the community. She lacks insight into what would cause her to be vulnerable (her visible nakedness, for example, or her bizarre behavior). She continues to pace the halls, now with her head bent lower and her arms in an odd, stiff position. Her hair is not combed and doesn't appear to have been in some time. She looks through me when she speaks. Assessment - Assessment Merits Inpatient Hospitalization: For Immediate Safety Inpatient DSM-V Dx: F31.13 Clinical Impression: Imelda needs time to rest and recover. This stay will be longer than her previous stay with a more aggressive application of antipsychotics to establish more stability. We will be using Abilify 300 mg, although data from her stay in [place] indicates that 15 mg per day is an ideal dose of Imelda. Imelda was not agreeable to 400 mg, but was somewhat willing to take 300 mg. When she believes she is not observed, she engages in some odd behaviors such as trying to turn a cartwheel in the [place] (this has been a repeated behavior). She does not have insight into her illness or its effect on others, such as her son or her ex- . She has in the past been clearer. She remains unsafe in the community and is quite symptomatic. Over the weekend she seems to have gotten worse, with auditory hallucinations being present and her responding to them. Plan - Plan Treatment Plan: Name: IMELDA PICKERING Birthdate: 1975 [id number] Medications: Current Medications Aripiprazole (Abilify Tab*) 5 mg PO BEDTIME [facility] Last Admin: 07/23/18 20:59 Dose: Not Given Aripiprazole (Abilify Maintena (Nf)) 300 mg IM Q28D [facility] Last Admin: 07/12/18 16:40 Dose: 300 mg [place] Carbonate ([place] Carbonate Tab*) 600 mg PO BEDTIME [facility] Last Admin: 07/23/18 20:59 Dose: Not Given [place] Carbonate ([place] Carbonate Tab*) 300 mg PO DAILY [facility] Last Admin: 07/24/18 09:27 Dose: Not Given Lorazepam (Ativan Tab(*)) 2 mg PO Q4H PRN PRN Reason: Anxiety/agitation Last Admin: 07/12/18 01:05 Dose: 2 mg Risperidone (Risperdal-M Tab *) 1 mg PO Q6H PRN; Protocol PRN Reason: AGITATION Last Admin: 07/12/18 01:05 Dose: 1 mg - Discharge Plan Discharge Plan: Consider Longer Term Tx Additional Comments: We started Maintena 300 mg. Imelda will continue to be watched carefully as she is pacing and does not always look where she is going. She is eating better. Main concerns going forward at this time are tolerability of Abilify Maintena, sleep, nutrition, and physical safety. As she is declining oral medications, a longer stay has been required. Further, the extraordinary situation she got into after her last discharge (jailed and hospitalized in [place]) indicates a trajectory toward state hospitalization. She is being encouraged to take her oral medications, but she declines. Still, that would be the best way to improve her state of mind.
[2018-07-24] MEDS: ARIPiprazole TAB* 5 MG PO SCH (20:56)
[2018-07-25] MEDS: Lithium Carbonate TAB* 300 MG PO SCH ×2 (11:40→21:40)
[2018-07-25] MEDS: risperiDONE-M * 1 MG TAB.ORADIS PO PRN (13:16)
[2018-07-25] MEDS: LORazepam TAB(*) 1 MG PO PRN (13:16)
[2018-07-25] MEDS: ARIPiprazole TAB* 5 MG PO SCH (21:40)
[2018-07-26] MEDS: Lithium Carbonate TAB* 300 MG PO SCH ×2 (09:24→19:39)
--- NOTE | 2018-07-26 15:23 | PN ---
Subjective - Subjective Date of Service: 07/26/18 Service Type: [id number] Hosp care 15 min low complexity Subjective: Imelda was eating lunch in the milieu at her own table alone. 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 She didn't want to talk until later, however , and she was sleeping the rest of the day. She was seen hopping over invisible barriers in the hallway today after lunch. Objective - Appearance Appearance: Thin Framed Dysmorphic Features: No Hygiene: Normal Grooming: Disheveled - Behavior Psychomotor Activities: Abnormal-Increased Exhibits Abnormal Movement: No - Attitude and Relatedness Attitude and Relatedness: Psychotically Related Eye Contact: Fair - Speech Quality: Unpressured Latencies: Short Quantity: Terse - Mood Patient's Decription of Mood: "Good" - Affect Observed Affect: Tense Affect Consistent with: Dysphoria - Thought Process Patient's Thought Process: Disorganized Thought Content: No Passive Wish, No Suicidal Planning, No Homicidal Ideation - Sensorium Experiencing Hallucinations: Yes Type of Hallucinations: Visual: Yes, Auditory: Yes - Level of Consciousness Level of Consciousness: Alert Orientation: Yes Intact, Yes Orientated to Time, Yes Orientated to Place, Yes Orientated to Person - Impulse Control Impulse Control: Impaired - Insight and Judgement Insight and Judgement: Impaired - Group Participation Particating in Group Activities: No - Medication Management Medication Management Adherence: No - Additional Observations Comments: Imelda is doing as well as possible for right now. She is refusing to take oral medication. The Abilify Maintena has not had a chance to take effect yet. She is also refusing lithium, which in the past has been extremely helpful. Her behavior would not be safe in the community. She lacks insight into what would cause her to be vulnerable (her visible nakedness, for example, or her bizarre behavior). She continues to pace the halls, now with her head bent lower and her arms in an odd, stiff position. Her hair is not combed and doesn't appear to have been in some time. She looks through me when she speaks, but she is pleasant and polite. Still her affect is strange and she appears unwell. Assessment - Assessment Merits Inpatient Hospitalization: For Immediate Safety, For Stabilization Inpatient DSM-V Dx: F31.13 Clinical Impression: Imelda needs time to rest and recover. This stay will be longer than her previous stay with a more aggressive application of antipsychotics to establish more stability. We will be using Abilify 300 mg, although data from her stay in [place] indicates that 15 mg per day is an ideal dose of Imelda. Imelda was not agreeable to 400 mg, but was somewhat willing to take 300 mg. When she believes she is not observed, she engages in some odd behaviors such as trying to turn a cartwheel in the [place] (this has been a repeated behavior). She does not have insight into her illness or its effect on others, such as her son or her ex- . She has in the past been clearer. She remains unsafe in the community and is quite symptomatic. Over the weekend she seems to have gotten worse, with auditory hallucinations being present and her responding to them. She continues to be quite ill with physical responses to internal stimuli. She laughs at times, responds by jumping and running, and is clearly psychotic. Her interactions are minimal and are stilted when they occur. She lacks insight into her illness. Plan - Plan Treatment Plan: Name: IMELDA PICKERING Birthdate: 1975 [id number] Medications: Current Medications Aripiprazole (Abilify Tab*) 5 mg PO BEDTIME [facility] Last Admin: 07/25/18 21:40 Dose: Not Given Aripiprazole (Abilify Maintena (Nf)) 300 mg IM Q28D [facility] Last Admin: 07/12/18 16:40 Dose: 300 mg [place] Carbonate ([place] Carbonate Tab*) 600 mg PO BEDTIME [facility] Last Admin: 07/25/18 21:40 Dose: Not Given [place] Carbonate ([place] Carbonate Tab*) 300 mg PO DAILY [facility] Last Admin: 07/26/18 09:24 Dose: Not Given Lorazepam (Ativan Tab(*)) 2 mg PO Q4H PRN PRN Reason: Anxiety/agitation Last Admin: 07/25/18 13:16 Dose: 2 mg Risperidone (Risperdal-M Tab *) 1 mg PO Q6H PRN; Protocol PRN Reason: AGITATION Last Admin: 07/25/18 13:16 Dose: 1 mg - Discharge Plan Discharge Plan: Consider Longer Term Tx Additional Comments: We started Maintena 300 mg. Imelda will continue to be watched carefully as she is pacing and does not always look where she is going. She is eating better. Main concerns going forward at this time are tolerability of Abilify Maintena, sleep, nutrition, and physical safety. As she is declining oral medications, a longer stay has been required. Further, the extraordinary situation she got into after her last discharge (jailed and hospitalized in [place]) indicates a trajectory toward state hospitalization. She is being encouraged to take her oral medications, but she declines. Still, that would be the best way to improve her state of mind. She is being transferred to [facility] tomorrow (07/27/18) . This is the safest plan as Imelda has not improved here.
[2018-07-26] MEDS: ARIPiprazole TAB* 5 MG PO SCH (19:39)
[2018-07-27 08:21] VITALS: BP 112/88
[2018-07-27] MEDS: Lithium Carbonate TAB* 300 MG PO SCH (09:11)
[2018-07-27] MEDS ORDERED: LORazepam INJ* 2 MG/ML 1 ML VIAL IM ONE (10:37)
[2018-07-27] MEDS ORDERED: LORazepam TAB(*) 1 MG ONE (10:39)
[2018-07-27] MEDS ORDERED: Haloperidol TAB* 5 MG ONE (10:39)
[2018-07-27] MEDS ORDERED: LORazepam INJ* 2 MG/ML 1 ML VIAL ONE (10:39)
[2018-07-27] MEDS ORDERED: Haloperidol INJ IV/IM* 5 MG/ML AMP IM ONE (10:40)
[2018-07-27] MEDS ORDERED: Haloperidol INJ IV/IM* 5 MG/ML AMP ONE (10:40)
[2018-07-27] MEDS: LORazepam TAB(*) 1 MG PO PRN (10:55)
[2018-07-27] MEDS ORDERED: Haloperidol TAB* 5 MG PO ONE (10:56)
--- NOTE | 2018-07-28 08:01 | DS ---
DISCHARGE SUMMARY: DATE OF ADMISSION: 07/10/18 DATE OF DISCHARGE: 07/27/18 PROVIDER: Eugenia Parker NP, in Psychiatry. SUPERVISING PHYSICIAN: Dr. Nicho Mcbride* (dictated by Eugenia Parker NP). DIAGNOSIS: [place] I: Bipolar I disorder, mixed with psychotic features. CONDITION AT THE TIME OF DISCHARGE: Unimproved. Psychiatrically ill. She is stable in her illness, but is still very symptomatic. She did not participate in groups. She was not social with others. She was treated here psychiatrically with medications such as Maintena injectable, but she refused to take oral medications, and although she tolerated the injection well, she did not improve. She is being transferred to [facility]. MENTAL STATUS EXAMINATION: At the time of discharge, Imelda is calm. She is cooperative. She makes little to no eye contact. She is very sleepy. She is alert and oriented x3. Her grooming is less than adequate. She is disheveled. Her speech pace is slow. Her thought processes are not logical. She is psychotic. She is delusional. She may be having auditory hallucinations, but she will not confide that into any one. She is not suicidal or homicidal. Her insight and judgment are poor. DISCHARGE INSTRUCTIONS TO THE PATIENT: A. Medications: Imelda was injected with 300 mg of Abilify Maintena on 07/12/18. Before leaving the hospital, she was given Haldol 5 mg and Ativan 2 mg. She was prescribed lithium carbonate 600 mg at bedtime and lithium carbonate 300 mg in the morning in the past; these have been very effective, the lithium. B. Diet: Raw vegan diet, although she deviates from this with regularity. C. Activities: As tolerated. Imelda is nonsmoker. There are no studies pending at the time of discharge. D. Followup Care: She is transferred to [facility]. E. Substance Abuse: Followup is not indicated. HOSPITAL COURSE: Part A: Chief Complaint: "I am going to , just wait and see." Imelda is a 43- year-old white female with a history of bipolar disorder and multiple historical acute psychiatric hospitalizations. She comes in on the 39 status after being brought by ambulance from the [facility] parking lot in [facility]. She was found by the police attempting to enter other people's cars as hers had been impounded earlier that day when the police stopped her either for driving erratically or because she does not have insurance. She was feeling "foggy." She does not remember the beginning of her day and is having a hard time reporting what is going on for her. In the evaluation, she was initially cooperative and then became evasive and shutdown. At this time, she is sleeping in her room. She did get up for a few moments but an attempted interview was unsuccessful. Her lithium level was drawn in the emergency room and it was low at 0.12. She had at the last hospitalization , which was 04/22/18, been taking Invega Sustenna 39 mg monthly. Apparently, immediately after her last discharge, she left and her father ended up finding her in [place] in residential for driving erratically and being presumed to have DWI. At this time, she is disorganized, easily distracted with flight of ideas. She has psychomotor retardation. She is sleeping now. Part B: Psychiatric treatment was rendered. The patient was admitted to the adult behavioral unit and placed on 15-minute checks for safety. Imelda, at times, did well on the unit but for the majority of the time was psychotic and related to others in a psychotic manner. There were times when she would leave her room without clothes on. She would attempt to enter other patients rooms at night. She would shower in other patient's showers wearing only socks. She would shower in her own room in her clothes and leave her shower with her clothes on and get into bed wet. In the past, Imelda has done okay using lithium and a very small amount of antipsychotic. She has refused to take oral medications here on this unit, although she did agree to the injectable Abilify Maintena 300 mg, which was injected on 07/12/18. Today was a typical day for Imelda. She was disorganized. She spent much of the day in bed. She did remove her clothes and run down the gillis. Today was unusual in that she jumped into the window with her hands flat out. It is unclear what she was attempting to do. She was cooperative in getting onto the stretcher that the ambulance had brought after having been medicated. She was agreeable to being strapped into the stretcher with safety belts. She was given a bag lunch to take with her and immediately started eating bread. Imelda has not improved on this unit, in fact may have gotten worse. For example , last week, we took her to court for retention and to allow us to [facility]. She was coherent at that time and although she was not at her best, she was reasonable and was able to make her point when she was speaking with the glue machine operator. Nevertheless, the glue machine operator did agree to send her to the [facility]. It is with regret that we send her to [facility], but wish her well and wellness. EUGENIA PARKER, KATERINE [id number]/CPS #: [id number] ORQUIDEA
== END 2018-07-27 12:34 | disposition short-term general hospital (02) | DRG 885 ==
LOC: ED 22:20 → BSU 07-10 08:43
PROVIDERS: ADMIT Psychiatry & Neurology Psychiatry; ATTEND Psychiatry & Neurology Psychiatry
DX: F31.64 Bipolar disorder, current episode mixed, severe, with psychotic features (principal); Z91.5 Personal history of self-harm; Z91.419 Personal history of unspecified adult abuse; Z85.41 Personal history of malignant neoplasm of cervix uteri; Z81.8 Family history of other mental and behavioral disorders
CPT/HCPCS: 36415; 80053; 80178; 80320; 80329; 84443; 84702; 85025; 99222; 99231; 99232; 99233; 99238; 99284; A9270-GY; G0480; J1630; J2060

== ENCOUNTER 2019-03-16 19:56 | Emergency (ER) | payer MEDICARE, OTHER ==
[2019-03-16 20:29] LABS: ABS Lymphocytes 1.7 10^3/ul (1.0-4.8); ABS Monocytes 0.6 10^3/ul (0-0.8); ABS Neutrophils 3.6 10^3/ul (1.5-7.7); Hematocrit 38 % (35-47); Hemoglobin 13.1 g/dL (12.0-16.0); Lymphocyte % 28.7 %; Mean Corpuscular HGB Conc 34 g/dL (31-36); Mean Corpuscular Hemoglobin 33 pg (27-31); Mean Corpuscular Volume 95 fL (80-97); Mean Platelet Volume 7.5 fL (7.4-10.4); Platelet Count 216 10^3/uL (150-450); Red Blood Count 4.03 10^6 /uL (3.70-4.87); Red Cell Distribution Width 13 % (10.5-15); White Blood Count 5.9 10^3/uL (3.5-10.8)
--- NOTE | 2019-03-16 20:31 | ED ---
Substance Abuse/Use - HPI Summary HPI Summary: 43 year old F brought in by [facility][id number] to [facility] with a chief complaint of ETOH consumption since today. states that ex- called 911 after receiving bizarre, nonsensical texts from pt today. Symptoms aggravated by nothing. Symptoms alleviated by nothing. Patient states she had " 5 mg" of alcohol. She denies suicidal ideation and homicidal ideation. Patient denies pain. She denies trauma. Patient states "I wasn't connecting with centered with residency apartments" and that "I wasn't have prob-atenses." Patient reports her "" called police because "I wasn't having residency that he found...um...I was..." states that patient is not . Patient is not making sense with her words. She states she knows this. She continually says "residency." Pt is LEVEL 5 CAVEAT, unable to answer questions, or give narrative about how she came to be in [facility]. Patient was admitted to [facility] on 04/22/18 and 07/10/18 according to previous medical records. Spoke with ex- Krunal, who is the father of their 9 yo son, (and father has full custody of the son) who stated that patient was just released yesterday from [facility] after 8 month involuntary hospitalization that was court ordered, to [facility], a transitional unit that was voluntary. Per Krunal, patient left the [facility] unit and never came back, bought a phone, and either used Uber, Lyft, or a taxi to get herself to her place in [place]. She didn't want to be at her place so she went to the [facility] in [place] per . Using her phone, she kept sending text messages to Krunal, per Krunal. Per Krunal, patient and he talked on the phone and Krunal convinced patient to talk to Sravani, finance business manager downstairs in the hotel ([facility] in [place] where pt was), where Sravani confirmed that patient had about 3 glasses of wine in rapid succession. Per Krunal, patient was involved in [employer] and was incarcerated in [place] because she wanted to find the cult leader, have a baby with him, and bring him back to [place]. Per Krunal, talking gibberish is not unusual for patient. Per Krunal, patient used to take Invaga which is no longer working for her. Krunal' s phone number is [phone]. Sravani's phone number at [facility] is . 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 Overdose Characteristics: Oral Timing Of Abuse: Binge Use Severity Initially: Moderate Severity Currently: Moderate Character: Other - word-salad speech, nonlinear speech, gibberish, cooperative Aggravating Factor(s): Nothing Alleviating Factor(s): Nothing Associated Signs And Symptoms: Negative - SI, HI, Confused, Hallucinating Related Hx: Prior Psych Admission - just released yesterday from [address] mandated, involuntary admission in [place] - Allergies/Home Medications Allergies/Adverse Reactions: Allergies Allergy/AdvReac Type Severity Reaction Status Date / Time No Known Allergies Allergy Verified 03/16/19 20:01 PMH/Surg Hx/FS Hx/Imm Hx Previously Healthy: No Respiratory History: Denies: Hx Chronic Obstructive Pulmonary Disease (COPD) History: Reports: Other Problems/Disorders - herpes and genital warts Sensory History: Reports: Hx Contacts or Glasses Denies: Hx Legally Blind, Hx Deafness, Hx Hearing Aid Opthamlomology History: Reports: Hx Contacts or Glasses Denies: Hx Legally Blind Psychiatric History: Reports: Hx Depression, Hx Inpatient Treatment - involuntary x 8 months in [place], released 03/15/19, Hx [facility], Hx Bipolar Disorder, Hx Suicide Attempt Denies: Hx Eating Disorder - Surgical History Surgery Procedure, Year, and Place: Patient did not answer this question. Infectious Disease History: No Infectious Disease History: Denies: Traveled Outside the [place] in Last 30 Days - Family History Family History: Twin sister of suicidal OD in 2015. Grandmother had mood disorders. - Social History Alcohol Use: None Alcohol Amount: denies Hx Substance Use: No Substance Use Type: Reports: None Substance Use Comment - Amount & Last Used: denies Hx Tobacco Use: No Smoking Status (MU): Never Smoked Tobacco Amount Used/How Often: denies tobacco use Length of Time of Smoking/Using Tobacco: denies tobacco use Have You Smoked in the Last Year: No Review of Systems - ROS Summary Review of Systems Summary: LEVEL 5 CAVEAT: Pt speaking gibberish, unable to answer ROS questions. Negative: Fever Positive: Other - ETOH consumption; NEGATIVE: SI, HI All Other Systems Reviewed And Are Negative: No Physical Exam - Summary Physical Exam Summary: Appearance: Well-appearing, no pain distress, well-nourished. Patient keeps wandering out of her room, needs frequent re-direction Skin: Warm, color reflects adequate perfusion, dry Head: Normal Head/Face inspection, atraumatic Eyes: Conjunctiva clear ENT: Normal inspection Neck: Supple, no nodes, no JVD Respiratory: Lungs clear, normal breath sounds, no respiratory distress Cardio: RRR, No murmur, pulses normal, brisk capillary refill Abdomen: Soft, nontender Bowel sounds: Present Musculoskeletal: Strength Intact/ROM intact, no calf tenderness, no edema., no evidence of trauma or deformity Psychological: Word salad and non linear speech, all tangential speech, cooperative Neuro: A&O x3, CN II-XII intact, motor function 5/5, sensation intact, cerebellar normal GCS: 14 Triage Information Reviewed: Yes Vital Signs On Initial Exam: Initial Vitals Temp Pulse Resp BP Pulse Ox 98.3 F 83 16 106/63 96 03/16/19 19:56 03/16/19 19:56 03/16/19 19:56 03/16/19 19:56 03/16/19 19:56 Vital Signs Reviewed: Yes - [place] Coma Scale Best Eye Response: 4 - Spontaneous Best Motor Response: 6 - Obeys Commands Best Verbal Response: 4 - Confused Coma Scale Total: 14 Diagnostics - Vital Signs Vital Signs Temp Pulse Resp BP Pulse Ox 03/16/19 19:56 98.3 F 83 16 106/63 96 - Laboratory Result Diagrams: 03/16/19 20:24 03/16/19 20:24 Lab Statement: Any lab studies that have been ordered have been reviewed, and results considered in the medical decision making process. - CT Brain CT Interpretation Completed By: Radiologist Summary of CT Findings: No acute intracranial pathology. ED physician has reviewed this report. Re-Evaluation - Re-Evaluation First Eval Re-Evaluation Time: 21:30 Change: Unchanged Comment: Pt remains calm in her room. Speech and sentences are still nonsensical. Course/Dx - Course Course Of Treatment: 44 yo F with hx Bipolar I who was just released from [facility] involuntary admission, presents to ED via [facility], who brought pt in on 9 status after pt sent [employer] texts to her ex-, and ex- called 911. Patient medications reviewed this visit, but uncertain, used to be on Invega and lithium, so lithium level drawn. Nurses notes reviewed. Per minesh Serna, the clinical nursing instructor at [facility] is not able to release medical records. Pt remained cooperative in the ED and was placed on q 15 minute observation. Patient cleared for MHE at 2157 with ETOH 126 one hour prior, and negative head CT and unremarkable labs. CT Brain, done for altered mental status , showed No acute intracranial pathology. Patient will be signed out to Dr. Sherwood at shift change, awaiting MHE, pending disposition. Dr. Aranda is on duty at [facility], who [facility], per the nursing cell operation supervisor there. - Diagnoses Differential Diagnosis/HQI/PQRI: Positive: Acute Psychosis, Alcohol Abuse, Bipolar Disorder, Drug Abuse, Metabolic Disorder Provider Diagnoses: Acute psychosis, Alcohol intoxication, Elevated alanine aminotransferase (ALT) level, Elevated aspartate aminotransferase level Discharge - Sign-Out/Discharge Documenting (check all that apply): Sign-Out Patient Signing out patient TO: Easton Sherwood - 03/16/19 22:00 Awaiting MHE, pending disposition Patient Received Moderate/Deep Sedation with Procedure: No - Discharge Plan Referrals: Margaret Dumont MD [Primary Care Provider] - - Attestation Statements Document Initiated by Scribe: Yes Documenting Scribe: Aislinn Nobles Provider For Whom Scribe is Documenting (Include Credential): Felicia Odonnell MD Scribe Attestation: I, Aislinn Nobles, scribed for Felicia Odonnell MD on 03/17/19 at 0053. Scribe Documentation Reviewed: Yes Provider Attestation: The documentation as recorded by the scribe, Aislinn Nobles accurately reflects the service I personally performed and the decisions made by me, Felicia Odonnell MD Status of Scribe Document: Viewed
[2019-03-16 20:47] LABS: ALT 67 U/L (7-52); Albumin 4.3 g/dL (3.2-5.2); Albumin/Globulin Ratio 1.4 (1-3); Alkaline Phosphatase 100 U/L (34-104); BUN/Creatinine Ratio 13.5 (8-20); Blood Urea Nitrogen 10 mg/dL (6-24); CO2 Carbon Dioxide 22 mmol/L (22-32); Calcium 9.2 mg/dL (8.6-10.3); Chloride 111 mmol/L (101-111); EGFR African American 102.7 (>60); EGFR Non-African American 84.9 (>60); Glucose 113 mg/dL (70-100); Sodium 141 mmol/L (135-145); Total Protein 7.3 g/dL (6.4-8.9)
[2019-03-16 20:53] LABS: HCG Pregnancy 2.12 mIU/mL
[2019-03-16 21:01] LABS: AST 43 U/L (13-39); Anion Gap 8 mmol/L (2-11); Potassium 3.4 mmol/L (3.5-5.0)
[2019-03-16 21:13] LABS: Urine Appearance Clear; Urine Bacteria 1+ (Absent); Urine Bilirubin Negative (Negative); Urine Blood Negative (Negative); Urine Color Colorless; Urine Glucose Negative (Negative); Urine Ketones Negative (Negative); Urine Nitrite Negative (Negative); Urine Protein Negative (Negative); Urine Red Blood Cell Absent (Absent); Urine Specific Gravity 1.001 (1.010-1.030); Urine Urobilinogen Negative (Negative); Urine White Blood Cell Trace(0-5/hpf) (Absent)
[2019-03-16 21:21] LABS: Acetaminophen < 15 mcg/mL; Alcohol 126 mg/dL (<10); Lithium 0.17 mmol/L (0.6-1.2); Salicylate < 2.50 mg/dL (<30)
[2019-03-16 21:27] LABS: Urine Benzodiazepine Screen None Detected (None Detect); Urine Opiates Screen None Detected (None Detect)
[2019-03-16 21:28] LABS: TSH (Thyroid Stimulating Horm) 6.03 mcIU/mL (0.34-5.60)
[2019-03-17] MEDS ORDERED: LORazepam TAB(*) 1 MG PO ONE (01:58)
--- NOTE | 2019-03-17 06:33 | ED ---
Progress - Progress Note Progress Note: The patient is a sign-out to Dr. Easton Sherwood MD, from Dr. Felicia Odonnell MD, at change of shift at 2200 pending MHE and disposition. At 0500, Shun, mental health aluminum can collector, came to the ED to report that the patient will be transferred back to the facility she was previously at. She is diagnosed with acute psychosis. The patient is a sign-out to Dr. Chase East MD, from Dr. Easton Sherwood MD at change of shift at 0700 pending MHU hold and transfer to higher facility. - Consult/PCP Time Called: 22:00 Re-Evaluation - Re-Evaluation First Eval Re-Evaluation Time: 21:30 Change: Unchanged Comment: Pt remains calm in her room. Speech and sentences are still nonsensical. Course/Dx - Diagnoses Provider Diagnoses: Acute psychosis, Alcohol intoxication, Elevated alanine aminotransferase (ALT) level, Elevated aspartate aminotransferase level Discharge - Sign-Out/Discharge Documenting (check all that apply): Sign-Out Patient, Receiving Sign-Out Signing out patient TO: Chase East - Patient is a sign-out to Dr. East at change of shift pending MHU hold and transfer to higher facility. Receiving patient FROM: Felicia Odonnell - Patient is a sign-out from Dr. Odonnell pending MHE and disposition. Patient Received Moderate/Deep Sedation with Procedure: No - Discharge Plan Condition: Stable Referrals: Margaret Dumont MD [Primary Care Provider] - - Billing Disposition and Condition Condition: STABLE - Attestation Statements Document Initiated by Rose: Yes Documenting Scribe: Nelsy Heath Provider For Whom Rose is Documenting (Include Credential): Dr. Easton Sherwood MD Scribe Attestation: Nelsy Sood scribed for Dr. Easton Sherwood MD on 03/17/19 at 0652. Scribe Documentation Reviewed: Yes Provider Attestation: The documentation as recorded by the Nelsy dorantes accurately reflects the service I personally performed and the decisions made by me, Dr. Easton Sherwood MD Status of Scribe Document: Viewed
--- NOTE | 2019-03-17 07:48 | ED ---
Progress - Progress Note Progress Note: This pt was signed out from Dr. Sherwood at shift change, pending transfer to another psychiatric facility. Pt had a mental health evaluation and her case was reviewed by Dr. Aranda, psychiatrist. Dr. Aranda recommends transfer to [facility]. [09:26] Discussed the case with Dr. Kayode Payne, psychiatrist from [facility]. Dr. Payne accepted the pt for transfer to [facility]. Course/Dx - Diagnoses Provider Diagnoses: Acute psychosis, Alcohol intoxication, Elevated alanine aminotransferase (ALT) level, Elevated aspartate aminotransferase level Discharge - Sign-Out/Discharge Documenting (check all that apply): Patient Departure - Transfer to [facility], Receiving Sign-Out Receiving patient FROM: Easton Sherwood Patient Received Moderate/Deep Sedation with Procedure: No - Discharge Plan Condition: Stable Disposition: PSYCHIATRIC FACILITY-OTHER Referrals: Margaret Dumont MD [Primary Care Provider] - - Attestation Statements Document Initiated by Scribe: Yes Documenting Scribe: Evita Morales Provider For Whom Scribe is Documenting (Include Credential): Chase East MD Scribe Attestation: Evita Sood, scribed for Chase East MD on 03/17/19 at 0945. Status of Scribe Document: Ready
[2019-03-17 12:34] VITALS: BP 112/83
== END 2019-03-17 12:34 ==
LOC: ED 19:56
DX: F23 Brief psychotic disorder (principal); F10.129 Alcohol abuse with intoxication, unspecified; R74.0 Nonspecific elevation of levels of transaminase and lactic acid dehydrogenase [LDH]
CPT/HCPCS: 36415; 70450; 80053; 80178; 80307; 80320; 80329; 81003; 81015; 84443; 84702; 85025; 87086; 93005; 99285; A9270-GY; G0480